=== PATIENT | male | born 1975 | race American Indian/Alaskan Native ===

== ENCOUNTER 2016-12-30 19:01 | Inpatient (IN) | payer OTHER ==
[2016-12-31] MEDS ORDERED: DECADRON IM ONE
[2016-12-31] MEDS ORDERED: TORADOL IM ONE
--- NOTE | 2016-12-31 00:14 | Emergency Department Report ---
ED Neck Pain HPI Chief Complaint: Neck Pain/Injury Stated Complaint: LOUISA/NECK SWELLING Time Seen by Provider: 12/30/16 23:58 Duration: Today Neck Pain Location: Anterior Neck Severity: moderate Symptoms: Yes Pain with Movement Other History: 41-year-old male comes in for complaint of right neck pain and swelling with no known injury. Onset this a.m. gradually worse throughout the day. He reports increased pain with swallowing but states his not his throat. He is able to complete control his secretions. Pain also radiates to the ear on the right. Denies any nausea vomiting does report a slight fever. Less having chills ED Review of Systems ROS: Stated complaint: LOUISA/NECK SWELLING Other details as noted in HPI Constitutional: chills, fever ENT: ear pain, other (neck pain and swelling) Respiratory: denies: cough Cardiovascular: denies: chest pain ED Past Medical Hx - Past Medical History Previous Medical History?: No - Surgical History Past Surgical History?: No - Social History Smoking Status: Never Smoker Substance Use Type: None Neck Pain Exam - Exam General: Vital signs noted. No distress. Alert and acting appropriately. GENERAL: Alert and oriented x3, no apparent distress, Normal Gait, atraumatic. HEAD: Head is normocephalic and a-traumatic. EYES: Extra ocular muscles are intact. Pupils are equal, round, and reactive to light and accommodation. EARS: symetrical, atraumatic, non tender, ear canal clear and moderate cerumen, tympanic membrance non inflamed. gross auditory nml bilaterally. NOSE: Nose symetrical, Nontender,Nares appeared normal. MOUTH:Mouth is well hydrated and without lesions. Tonsils nonerythematous or swollen, Uvula midline, Tongue not elevated. Mucous membranes are moist. Posterior pharynx clear, no exudate or lesions. Patent airways. NECK: Supple. edematous on the right, No carotid bruits. No lymphadenopathy or thyromegaly. PSYCHIATRIC: Mood is congruent with affect, denies suicidal or homicidal ideations. SKIN: Warm and dry, No lesions, No ulceration or induration present HEENT: No Facial Pain, No Scalp Tenderness Neck Pain: No Midline Tenderness ED Course Vital Signs 12/30/16 19:28 Temperature 99.2 F Pulse Rate 92 H Respiratory 20 Rate Blood Pressure 150/84 O2 Sat by Pulse 100 Oximetry ED Medical Decision Making - Radiology Data Radiology results: image reviewed FINDINGS: There submandibular soft tissue prominence and the epiglottis appears thickened. There is air anterior to the larynx likely within the esophagus. The prevertebral soft tissues are not swollen. The visualized bones are unremarkable. IMPRESSION: Submandibular soft tissue prominence and epiglottic thickening. Further evaluation with CT of the neck with contrast is recommended. Transcribed By: FLORENTIN Dictated By: SERGIO ALFRED MD Electronically Authenticated By: SERGIO ALFRED MD Signed Date/Time: 12/31/16 0152 - Medical Decision Making Patient's been evaluated by this provider in fast track. We will give patient Decadron 8 mg IM as well as Toradol 60 mg IM for pain and swelling. Review of x -rays waiting for results and the final reading. Patient verbalized understanding. Soft tissue x-ray came back with recommendation submandibular swelling. For CT with contrast Discussed with Dr. Johnson the results of the plain film as well as the call from the radiologist that there is a cute epiglottitis of right epiglottis thickening. His provider decides to admit patient for airway safety. Status post and patient my findings and my concerns. Patient decides to be admitted. Discussed with the admitting doctor Apoorva the reason I'm admitting he will come down and evaluate patient. Critical care attestation.: If time is entered above; I have spent that time in minutes in the direct care of this critically ill patient, excluding procedure time. ED Disposition Clinical Impression: Acute epiglottitis Qualifiers: Airway obstruction: without obstruction Qualified Code(s): J05.10 - Acute epiglottitis without obstruction Is pt being admited?: Yes Does the pt Need Aspirin: No Condition: Stable Referrals: PRIMARY CARE, [Primary Care Provider] - 3-5 Days Forms: Work/School Release Form(ED)
--- NOTE | 2016-12-31 00:54 | XRay Report ---
FINAL REPORT EXAM: XR NECK SOFT TISSUE HISTORY: pain TECHNIQUE: Two soft tissue views of the PRIORS: None. FINDINGS: There submandibular soft tissue prominence and the epiglottis appears thickened. There is air anterior to the larynx likely within the esophagus. The prevertebral soft tissues are not swollen. The visualized bones are unremarkable. IMPRESSION: Submandibular soft tissue prominence and epiglottic thickening. Further evaluation with CT of the neck with contrast is recommended.
[2016-12-31 02:07] LABS: Hematocrit 48.7 % (35.5-45.6); Mean Corpuscular HGB Conc 33 % (32-34); Mean Corpuscular Hemoglobin 28 pg (28-32); Mean Corpuscular Volume 85 fl (84-94); Platelet Count 225 K/mm3 (140-440); Red Blood Count 5.71 M/mm3 (3.65-5.03); Red Cell Distribution Width 14.4 % (13.2-15.2); White Blood Count 11.4 K/mm3 (4.5-11.0)
[2016-12-31] MEDS ORDERED: NACL ONE (02:13)
[2016-12-31 02:26] LABS: BUN/Creatinine Ratio 12.14; Blood Urea Nitrogen 17 mg/dL (9-20); Carbon Dioxide 23 mmol/L (22-30); Chloride 101.1 mmol/L (98-107); Glucose 117 mg/dL (75-100); Potassium 4.4 mmol/L (3.6-5.0); Sodium 138 mmol/L (137-145)
[2016-12-31 02:46] LABS: Anion Gap 18 mmol/L
--- NOTE | 2016-12-31 03:40 | Cat Scan Report ---
FINAL REPORT EXAM: CT NECK W CON HISTORY: neck swelling TECHNIQUE: CT scan of the neck with IV contrast. Multiplanar reformatted images. PRIORS: None FINDINGS: Limited scans through the upper chest are unremarkable. Normal appearance of the thyroid gland. Normal appearance of the larynx. The epiglottis and right aryepiglottic fold are thickened. No mucosal lesion identified. No pathologically enlarged lymph nodes seen. No mass or abscess seen. IMPRESSION: 1. Findings most suggestive of epiglottitis. Maxx Critical Test Result (CTR) protocol was initiated. I discussed these results immediately before signing this report with Dr. Dowell.
--- NOTE | 2016-12-31 05:00 | Event Note ---
Date: 12/31/16 See H/p in reports Acute Epiglottitis Dysphagia Obesity
[2016-12-31] MEDS ORDERED: DULCOLAX PR PRN (05:02)
[2016-12-31] MEDS ORDERED: MILK OF MAGNESIA PO PRN (05:02)
[2016-12-31] MEDS ORDERED: TYLENOL PO PRN (05:02)
[2016-12-31] MEDS ORDERED: DILAUDID IV PRN (05:02)
[2016-12-31] MEDS ORDERED: ZOFRAN IV PRN (05:02)
[2016-12-31] MEDS ORDERED: TORADOL IV PRN (05:23)
[2016-12-31] MEDS ORDERED: D5NS 1,000 ML IV SCH (06:00)
[2016-12-31 06:01] LABS: Basophils % (Auto) 0.4 % (0.0-1.8); Eosinophils % (Auto) 0.1 % (0.0-4.3); Hematocrit 47.2 % (35.5-45.6); Hemoglobin 15.4 gm/dl (11.8-15.2); Mean Corpuscular HGB Conc 33 % (32-34); Mean Corpuscular Hemoglobin 28 pg (28-32); Mean Corpuscular Volume 86 fl (84-94); Platelet Count 228 K/mm3 (140-440); Red Blood Count 5.51 M/mm3 (3.65-5.03); Red Cell Distribution Width 14.8 % (13.2-15.2); White Blood Count 14.8 K/mm3 (4.5-11.0)
--- NOTE | 2016-12-31 06:42 | History and Physical Report ---
CHIEF COMPLAINT: 1.Difficulty swallowing. 2.Pain with swallowing. HISTORY OF PRESENT ILLNESS: A 41-year-old male comes in for right neck pain and swelling with no known injury. Onset since morning. Increasing pain with swallowing, but no sore throat. Able to swallow his secretions. Pain radiates to the ear. Pain is about 6-7 on a scale of 1-10. The patient had a low-grade fever. PAST MEDICAL HISTORY: Significant for no hypertension, no diabetes. PAST SURGICAL HISTORY: None. SOCIAL HISTORY: Does not smoke. No alcohol, no recreational drugs. FAMILY HISTORY: Significant for no hypertension, no diabetes. REVIEW OF SYSTEMS: CONSTITUTIONAL: Has low-grade fever. GENERAL: No weight loss, no weight gain. HEENT: Has right neck pain and has difficulty swallowing. Also, right neck swelling. NECK: As mentioned, right neck swelling and right neck pain. Pain radiates into the right ear. CARDIOVASCULAR: No chest pain, no palpitations. No diaphoresis. RESPIRATORY: No wheezing or cough productive of yellow sputum. GASTROINTESTINAL: No nausea, no vomiting, no diarrhea. MUSCULOSKELETAL: No joint pains. CENTRAL NERVOUS SYSTEM: No syncope, no seizures. SKIN: No rashes. PHYSICAL EXAMINATION: GENERAL: Middle-aged male, cooperative during examination. Lying in bed comfortably. VITAL SIGNS: Temperature 99.2, pulse is 92, respirations are 20, blood pressure is 150/84, O2 sat 100%. HEENT: Significant for posterior pharynx redness present. Tonsils not swollen. NECK: Right neck swelling present, varied by 1 cm. Tender. No neck stiffness. No carotid bruit. CHEST AND LUNGS: Clear to auscultation and percussion. Good air entry. CARDIOVASCULAR: S1, S2 heard. No gallop, no murmur, no rub. Apical impulse in left fifth intercostal space and midclavicular line. ABDOMEN: Soft and benign. No hepatosplenomegaly. No guarding, no rigidity. Hernial orifices are normal. EXTREMITIES: Good pedal pulses. No pedal edema. CENTRAL NERVOUS SYSTEM: Alert and oriented x 4. Nonfocal exam. SKIN: Normal. LABORATORY DATA: Labs not done. Soft tissue of the neck x-rays were done, which showed some mild soft tissue prominence and epiglottic thickening. Further evaluation with CT with of the neck with contrast was recommended. CT of the neck showed epiglottis and right aryepiglottic fold thickened. ASSESSMENT AND PLAN: 1. Acute epiglottitis. The patient has difficulty swallowing. The patient will be initiated on clear liquid diet for the time being. The patient has no problem swallowing liquids. The patient has problem swallowing solids. The patient started on tried probably viral/bacterial. The patient started on IV Rocephin 2 gm IV piggyback q.24h. for possible strep infection and also IV Decadron 8 mg q.8h. to decrease the swelling of the epiglottis. Probable admission for 48 hours and discharge on oral antibiotics and oral steroids. He is symptomatically better. 2. Deep venous thrombosis prophylaxis. Lovenox 40 mg subcutaneous daily. 3. Obesity. The patient counseled. JOB# [id number] FREDDIE/LYNNE
[2016-12-31] MEDS ORDERED: D5W 0 ML IV ONE (06:48)
[2016-12-31] MEDS ORDERED: DECADRON ONE (06:48)
[2016-12-31 06:49] LABS: BUN/Creatinine Ratio 12.85; Blood Urea Nitrogen 18 mg/dL (9-20); Calcium 9.1 mg/dL (8.4-10.2); Carbon Dioxide 22 mmol/L (22-30); Chloride 100.1 mmol/L (98-107); Glucose 171 mg/dL (75-100); Potassium 4.6 mmol/L (3.6-5.0); Sodium 137 mmol/L (137-145)
[2016-12-31] MEDS ORDERED: D5NS 1,000 ML IV ONE (06:49)
[2016-12-31 06:52] LABS: Anion Gap 20 mmol/L
[2016-12-31] MEDS: DECADRON IV SCH ×3 (06:59→22:36)
[2016-12-31] MEDS: LOVENOX SUB-Q SCH (12:12)
--- NOTE | 2016-12-31 12:31 | Event Note ---
Date: 12/31/16 The patient is 41-year-old admitted with acute epiglottitis. He feels better. He was seen and examined. Continue IV antibiotics.
[2016-12-31] MEDS: ROCEPHIN/NS 2 GM/100 ML 2 GM/100 ML BAG IV SCH (14:24)
--- NOTE | 2017-01-01 00:36 | Admit Criteria Form ---
Admission Criteria Documentation: HEAD AND NECK DISEASE [facility] Clinical Indications for Admission to Inpatient Care ( Place 'X' for any and all applicable criteria): Hospital admission is needed for appropriate care of the patient because of ANY ONE of the following (1)(2): [ ]I. Severe sinusitis as indicated by ANY ONE of the following (6)(13)(21) [ ]a) Suspected TAKER [employer] MACHINE infection [ ]b) Bacteremia [ ]c) Hemodynamic instability [ ]d) Outpatient and observation care antibiotic treatment have failed or are not considered appropriate [ ]e) Surgical drainage needed that cannot be performed on an outpatient basis or observation. setting [ ]f) Suspected orbital involvement [ ]II. Acute glaucoma unresponsive to emergency treatment that requires medication or other treatment beyond the scope of observation care (1) [ ]III. Severe eye infection or inflammation (eg, uveitis) which is unresponsive to emergency treatment and requires medication or other treatment beyond the scope of observation care (1)(2)(3)(4) [ ]IV. Severe epistaxis requiring posterior packing (5)(6) [ ]V. Acute bacterial labyrinthitis(6)(7) [ ]. Viral labyrinthitis with symptoms uncontrollable on an outpatient or observation care basis (6)(7) [ ]VII. Severe necrotizing external otitis unresponsive to outpatient and observation care treatment(6) [ ]VIII. Otitis media requiring treatment beyond the scope of outpatient and observation care, as indicated by presence or persistence of ANY ONE of the following(6)(8)(9): [ ]a) Hemodynamic instability [ ]b) Mastoiditis [ ]c) Suspected T[employer] MACHINE infection [ ]d) Bacteremia [ ]e) Surgical drainage needed that cannot be performed as an outpatient. or in an observation setting. [ X]IX. Epiglottitis or supraglottitis(6)(11)(12)(13)(14) [ ]X. Stridor or laryngospasm (unresponsive to emergency management) (6)(11)( 12)(13)(14) [ ]XI. Acute pharyngitis or tonsillitis and ANY ONE of the following (14)(15)( 16): [ ]a) Hemodynamic instability remaining after emergency or observation level care (as appropriate) [ ]b) Surgical drainage needed that cannot be performed in outpatient or observation setting [ ]c) Mediastinitis [ ]d) Thrombophlebitis of internal jugular vein (Lemierre syndrome) [ ]XII. Sialoadenitis and ANY ONE of the following (17) (18) [ ]a) Hemodynamic instability remaining after emergency or observation level care(as appropriate) [ ]b) Surgical drainage needed that cannot be performed in outpatient or observation setting [ ]XIII. Airway blockage or inability to swallow (6)(12)(19)(20) [ ]XIV.Complicated infection indicated by ANY ONE of the following(6)(13)(21)(22 ): [ ]a) Abscess or swelling causing airway difficulty(12) [ ]b) Bacteremia [ ]c) Hemodynamic instability [ ]d) Suspected T[employer] MACHINE infection [ ]e) Outpatient and observation care antibiotic treatment have failed or are not considered appropriate [ ]f) Surgical drainage needed that cannot be performed on an outpatient basis or observation setting [ ]g) Other management need that cannot be performed in outpatient or observation setting: [ ]XV. Severe trauma requiring inpatient medical treatment of eye, head, pharynx, or airway (1)(23)([phone]) [ ]XVI. Ischemic optic neuropathy(11) [ ]XVII.Head or Neck Disease condition and ANY ONE of the following: [ ]a) Symptom or finding for which emergency and observation care have failed or are not considered appropriate (Also use General Criteria: Observation Care as appropriate) [ ]b) Presence of ANY ONE of the following: [ ]i) A General Admission Criteria [ ]ii) A Pediatric General Admission Criteria The original [facility] content created by [facility] has been revised. The portions of the content which have been revised are identified through the use of italic text or in bold, and [facility] has neither reviewed nor approved the modified material. All other unmodified content is copyright [facility]. Please see references footnoted in the original [facility] edition 2016 Admission Criteria Met: Yes
[2017-01-01] MEDS: DECADRON IV SCH (06:35)
[2017-01-01 07:20] LABS: Hematocrit 45.7 % (35.5-45.6); Hemoglobin 14.6 gm/dl (11.8-15.2); Mean Corpuscular HGB Conc 32 % (32-34); Mean Corpuscular Hemoglobin 28 pg (28-32); Mean Corpuscular Volume 87 fl (84-94); Platelet Count 226 K/mm3 (140-440); Red Blood Count 5.25 M/mm3 (3.65-5.03); Red Cell Distribution Width 14.6 % (13.2-15.2)
[2017-01-01 07:28] LABS: White Blood Count 21.4 K/mm3 (4.5-11.0)
[2017-01-01 07:54] LABS: Anion Gap 18 mmol/L; BUN/Creatinine Ratio 13.57; Blood Urea Nitrogen 19 mg/dL (9-20); Calcium 8.6 mg/dL (8.4-10.2); Carbon Dioxide 23 mmol/L (22-30); Chloride 104.3 mmol/L (98-107); Glucose 130 mg/dL (75-100); Sodium 140 mmol/L (137-145)
[2017-01-01] MEDS: LOVENOX SUB-Q SCH (09:34)
[2017-01-01] MEDS: ROCEPHIN/NS 2 GM/100 ML 2 GM/100 ML BAG IV SCH (09:35)
--- NOTE | 2017-01-01 10:31 | Discharge Summary ---
Providers - Providers Date of Admission: 12/31/16 05:02 Date of discharge: 01/01/17 Attending physician: CARINA KENT Primary care physician: KAITLYN UBENO MD Hospitalization Condition: Fair Disposition: DISCHARGED TO HOME OR SELFCARE - Discharge Diagnoses (1) Acute epiglottitis Status: Acute Qualifiers: Airway obstruction: without obstruction Qualified Code(s): J05.10 - Acute epiglottitis without obstruction Exam - Constitutional Vitals: Temp Pulse Resp BP Pulse Ox 98.3 F 80 18 128/72 98 01/01/17 08:00 01/01/17 08:00 01/01/17 08:00 01/01/17 08:00 01/01/17 08:00 Plan Activity: no restrictions Diet: low fat, low cholesterol Additional Instructions: 1. Follow up with PCP or [facility] in 1 week. Follow up with: PRIMARY CARE,MD [Primary Care Provider] - 3-5 Days Forms: Work/School Release Form(ED) Prescriptions: Cephalexin [Keflex] 500 mg PO Q12HR #20 cap Famotidine [Pepcid] 20 mg PO BID #30 tablet Prednisone [predniSONE 5 mg (6-Day Pack, 21 Tabs)] 5 mg PO .TAPER #1 tab.ds.pk
[2017-01-01 10:52] LABS: Anisocytosis 1+; Basophils % (Manual) 0 % (0.0-1.8); Blastocytes % (Manual) 0 %; Diff Status Complete; Eosinophils % (Manual) 0 % (0.0-4.3); Platelet Estimate Consistent w Auto; Total Cells Counted Percent 2.5
[2017-01-01 13:14] VITALS: BP 110/64
== END 2017-01-01 14:30 | disposition home or self-care (01) | DRG 153 ==
LOC: ED 19:01 → 3A 12-31 05:02
PROVIDERS: ADMIT Internal Medicine; ATTEND Internal Medicine
DX: J05.10 Acute epiglottitis without obstruction (principal); Z68.41 Body mass index [BMI] 40.0-44.9, adult; I10 Essential (primary) hypertension; E66.9 Obesity, unspecified; R13.10 Dysphagia, unspecified
CPT/HCPCS: 36415; 70360; 70491; 80048; 85007; 85025; 85027; 96372; J0696; J1100; J1650; J1885; J7042; J7070; Q9967

== ENCOUNTER 2021-05-05 22:27 | Emergency (ER) | payer OTHER ==
--- NOTE | 2021-05-05 23:21 | Event Note ---
ED Screening Note ED Screening Note: R GROIN AND FLANK PAIN DENIES HERNIA OR INJURY DENIES HX OF SAME NO DISCHARGE NO DYSURIA This initial assessment/diagnostic orders/clinical plan/treatment(s) is/are subject to change based on patients health status, clinical progression and re- assessment by fellow clinical providers in the ED. Further treatment and workup at subsequent clinical providers discretion. Patient/guardian urged not to elope from the ED as their condition may be serious if not clinically assessed and managed. Initial orders include: UA TO ROOM FOR EXAM RO HERNIA
[2021-05-05 23:27] VITALS: BP 138/82
[2021-05-06 01:17] LABS: Bilirubin,Urine NEG (Negative); Blood,Urine NEG (Negative); Color,Urine Yellow (Yellow); Mucus,Urine FEW /HPF; Urobilinogen,Urine < 2.0 mg/dL (<2.0); WBC,Urine < 1.0 /HPF (0.0-6.0)
[2021-05-06] MEDS ORDERED: KETOROLAC 30 MG/1 ML INJ IV ONE (02:45)
--- NOTE | 2021-05-06 03:02 | Emergency Department Report ---
ED Abdominal Pain HPI - General Chief Complaint: Abdominal Pain Stated Complaint: GROIN ADN LOWER BACK PAIN Time Seen by Provider: 05/05/21 23:20 Source: patient Mode of arrival: Ambulatory Limitations: No Limitations - History of Present Illness Initial Comments: 45-year-old -[place] male from department complaining of groin pain to the right lower inguinal region that radiates across to his back for the last 1 to 2 days and worse with palpation and certain range of motion. Reports no fever, chills, sweats reports no hematuria no dysuria no diarrhea no constipation no nausea no vomiting. MD Complaint: abdominal pain Radiation: none Migration to: R flank Severity: mild, moderate Quality: aching, dull Consistency: constant Improves With: nothing Worsens With: movement (Palpation) Associated Symptoms: denies: nausea, vomiting, fever, dysuria, hematemesis, melena, hematuria, anorexia - Related Data Previous Rx's Medication Instructions Recorded Last Taken Type Famotidine [Pepcid] 20 mg PO BID #30 tablet 01/01/17 Unknown Rx Prednisone [predniSONE 5 mg (6-Day 5 mg PO .TAPER #1 tab.ds.pk 01/01/17 Unknown Rx Pack, 21 Tabs)] cephALEXin [Keflex] 500 mg PO Q12HR #20 cap 01/01/17 Unknown Rx Hyoscyamine Subl [Levsin Sl 0.125 0.125 mg SL Q4HR PRN #20 tablet 05/06/21 Unknown Rx TAB] Allergies Allergy/AdvReac Type Severity Reaction Status Date / Time No Known Allergies Allergy Verified 12/31/16 02:19 ED Review of Systems ROS: Stated complaint: GROIN ADN LOWER BACK PAIN Other details as noted in HPI Comment: All other systems reviewed and negative ED Past Medical Hx - Past Medical History Previous Medical History?: No Hx Congestive Heart Failure: No Hx Diabetes: No Hx Asthma: No Hx COPD: No - Surgical History Past Surgical History?: No - Social History Smoking Status: Never Smoker Substance Use Type: None - Medications Home Medications: Home Medications Medication Instructions Recorded Confirmed Last Taken Type Famotidine [Pepcid] 20 mg PO BID #30 tablet 01/01/17 Unknown Rx Prednisone [predniSONE 5 mg (6-Day 5 mg PO .TAPER #1 tab.ds.pk 01/01/17 Unknown Rx Pack, 21 Tabs)] cephALEXin [Keflex] 500 mg PO Q12HR #20 cap 01/01/17 Unknown Rx Hyoscyamine Subl [Levsin Sl 0.125 0.125 mg SL Q4HR PRN #20 tablet 05/06/21 Unknown Rx TAB] ED Physical Exam - General Limitations: No Limitations General appearance: alert, in no apparent distress - Head Head exam: Present: atraumatic, normocephalic - Eye Eye exam: Present: normal appearance, PERRL Pupils: Present: normal accommodation - ENT ENT exam: Present: normal exam, mucous membranes moist - Neck Neck exam: Present: normal inspection - Respiratory Respiratory exam: Present: normal lung sounds bilaterally. Absent: respiratory distress - Cardiovascular Cardiovascular Exam: Present: regular rate, normal rhythm. Absent: systolic murmur, diastolic murmur, rubs, gallop - GI/Abdominal GI/Abdominal exam: Present: soft, tenderness (To the right inguinal region with palpation.), normal bowel sounds. Absent: guarding, rebound, organomegaly, mass - Rectal Rectal exam: Present: deferred - Extremities Exam Extremities exam: Present: normal inspection - Back Exam Back exam: Present: normal inspection. Absent: CVA tenderness (R), CVA tenderness (L) - Neurological Exam Neurological exam: Present: alert, oriented X3, CN II-XII intact - Psychiatric Psychiatric exam: Present: normal affect, normal mood - Skin Skin exam: Present: warm, dry, intact, normal color. Absent: rash ED Course Vital Signs 05/05/21 05/05/21 05/06/21 23:23 23:27 06:49 Temperature 98.4 F Pulse Rate 80 75 Respiratory 18 17 Rate Blood Pressure 138/82 O2 Sat by Pulse 100 97 Oximetry ED Medical Decision Making - Lab Data Result diagrams: 05/06/21 03:01 05/06/21 03:01 - Medical Decision Making This patient presents with abdominal pain of unclear etiology. Their evaluation has not identified a emergent etiology for the abdominal pain. Specifically, given the very benign exam, normal laboratory studies, and lack of significant risk factors, I have a very low suspicion for appendicitis, ischemic bowel, bowel perforation, or any other life threatening disease. I have discussed with the patient the level of uncertainty with undifferentiated abdominal pain and clearly explained the need to follow-up as noted on the discharge instructions, or return to the Emergency Department immediately if the pain worsens, develops fever, persistent and uncontrollable vomiting, or for any new symptoms or concerns. I discussed with the patient that this presentation today for abdominal pain could represent a significant risk for an acute abdominal process. Although the tests in the ED were essentially normal, there is still a possibility of a process such as appendicitis, diverticulitis, cholecystitis, ulcer, early bowel obstruction, mesenteric ischemia, kidney stone, or even kidney infection which could subsequently cause disability or . The patient understands that they must return within 24 hours for a recheck or see their physician within 24 hours for re-exam due to the possibility of significant surgical or medical process. Critical care attestation.: If time is entered above; I have spent that time in minutes in the direct care of this critically ill patient, excluding procedure time. ED Disposition Clinical Impression: Abdominal pain Disposition: - TO HOME OR SELFCARE Is pt being admited?: No Does the pt Need Aspirin: No Condition: Stable Instructions: Abdominal Pain, Adult, [id number] Prescriptions: Hyoscyamine Subl [Levsin Sl 0.125 TAB] 0.125 mg SL Q4HR PRN #20 tablet PRN Reason: Spasms Referrals: [facility] [Provider Group] - 3-5 Days [facility] [Provider Group] - 3-5 Days PRIMARY CARE, [Primary Care Provider] - 3-5 Days
[2021-05-06 03:23] LABS: Basophils % (Auto) 0.7 % (0.0-1.8); Eosinophils # (Auto) 0.1 K/mm3 (0.0-0.4); Eosinophils % (Auto) 1.4 % (0.0-4.3); Hematocrit 46.4 % (35.5-45.6); Hemoglobin 15.5 gm/dl (11.8-15.2); Lymphocytes # (Auto) 3.1 K/mm3 (1.2-5.4); Lymphocytes % (Auto) 45.7 % (13.4-35.0); Mean Corpuscular HGB Conc 33 % (32-34); Mean Corpuscular Volume 88 fl (84-94); Monocytes # (Auto) 0.6 K/mm3 (0.0-0.8); Monocytes % (Auto) 9.7 % (0.0-7.3); Platelet Count 221 K/mm3 (140-440); Red Cell Distribution Width 14.9 % (13.2-15.2)
[2021-05-06 03:51] LABS: Alanine Aminotransferase 34 units/L (7-56); Albumin 4.3 g/dL (3.9-5); BUN/Creatinine Ratio 14; Blood Urea Nitrogen 18 mg/dL (9-20); Hemolysis Index 487
[2021-05-06 03:53] LABS: Bilirubin,Direct < 0.2 mg/dL (0-0.2)
== END 2021-05-06 06:49 | disposition home or self-care (01) ==
LOC: ED 22:27
DX: R10.31 Right lower quadrant pain (principal); Z79.899 Other long term (current) drug therapy
CPT/HCPCS: 36415; 80048; 80076; 81001; 83690; 85025; 96374; 99283; J1885

== ENCOUNTER 2021-05-13 12:54 | Observation (INO) | payer OTHER ==
--- NOTE | 2021-05-13 13:12 | Event Note ---
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 He denies any chest pain, shortness of breath, headache, vision changes, speech disturbance, gait disturbance, weakness, facial droop, any other symptoms Patient denies past medical history No allergies to medicines Cranial nerves II through XII intact, 5 out of 5 muscle strength in the bilateral upper extremity and lower extremity, patient is able to feel touch in the bilateral upper extremity and lower extremity, normal gait, no facial asymmetry, no pronator drift This initial assessment/diagnostic orders/clinical plan/treatment(s) is/are subject to change based on patients health status, clinical progression and re- assessment by fellow clinical providers in the ED. Further treatment and workup at subsequent clinical providers discretion. Patient/guardian urged not to elope from the ED as their condition may be serious if not clinically assessed and managed. Initial orders include: Discussed case with Dr. Sayra Gamboa, ER attending who advised symptoms likely not consistent with stroke and seems more consistent with radiculopathy Will defer any further testing to
--- NOTE | 2021-05-13 15:05 | Emergency Department Report ---
HPI - General Chief Complaint: Neuro Symptoms/Deficit Time Seen by Provider: 05/13/21 13:09 - HPI HPI: This is a 45-year-old -[place] male presents to the emergency department with a complaint of left arm numbness that has been going on since about 11:15 AM. Patient did not take anything for his symptoms prior to presentation. He says that he was at work and waited for another hour, thinking that the symptoms would go away on their own, and when they did not he came in for further evaluation. The patient questions whether this could be a reaction to taking a dose of Cipro, which he first took this morning at around 6:30 AM after being p laced on it by his PCP secondary to some lymphadenopathy. He denies any headache, vision change, slurred speech, weakness, shortness of breath. He denies any swelling of the arm, skin color change, rash or lesions. He denies any tobacco or illicit drug use. ED Past Medical Hx - Past Medical History Hx Congestive Heart Failure: No Hx Diabetes: No Hx Asthma: No Hx COPD: No - Surgical History Past Surgical History?: No - Social History Smoking Status: Never Smoker Substance Use Type: None - Medications Home Medications: Home Medications Medication Instructions Recorded Confirmed Last Taken Type Famotidine [Pepcid] 20 mg PO BID #30 tablet 01/01/17 Unknown Rx Prednisone [predniSONE 5 mg (6-Day 5 mg PO .TAPER #1 tab.ds.pk 01/01/17 Unknown Rx Pack, 21 Tabs)] cephALEXin [Keflex] 500 mg PO Q12HR #20 cap 01/01/17 Unknown Rx Hyoscyamine Subl [Levsin Sl 0.125 0.125 mg SL Q4HR PRN #20 tablet 05/06/21 Unknown Rx TAB] ED Review of Systems ROS: Stated complaint: LT ARM NUMBNESS Other details as noted in HPI Comment: All other systems reviewed and negative Constitutional: denies: chills, fever Eyes: denies: eye pain, vision change ENT: denies: ear pain, throat pain Respiratory: denies: cough, shortness of breath Cardiovascular: denies: chest pain, palpitations Gastrointestinal: denies: abdominal pain, vomiting Genitourinary: denies: dysuria, discharge Musculoskeletal: denies: back pain, arthralgia Skin: denies: rash, lesions Neurological: numbness, paresthesias. denies: headache Physical Exam - Physical Exam Vital Signs: Vital Signs 05/13/21 13:02 Temperature 98.3 F Pulse Rate 85 Respiratory 18 Rate Blood Pressure 126/81 O2 Sat by Pulse 98 Oximetry Physical Exam: GENERAL: The patient is well-developed well-nourished. HENT: Normocephalic. Atraumatic. Patient has moist mucous membranes. EYES: Extraocular motions are intact. Pupils equal reactive to light bilaterally. No nystagmus. NECK: Supple. Trachea is midline. CHEST/LUNGS: Clear to auscultation. There is no respiratory distress noted. HEART/CARDIOVASCULAR: Regular. There is no tachycardia. There is no murmur. ABDOMEN: Abdomen is soft, nontender. Patient has normal bowel sounds. There is no abdominal distention. SKIN: Skin is warm and dry. NEURO: The patient is awake, alert, and oriented. The patient is cooperative. Subjective decreased sensation to the left upper extremity and left upper flank. Normal speech. No facial asymmetry. No pronator drift or dysmetria. Cranial nerves II through XII grossly intact. MUSCULOSKELETAL: There is no tenderness or deformity. There is no limitation range of motion. ED Course Vital Signs 05/13/21 13:02 Temperature 98.3 F Pulse Rate 85 Respiratory 18 Rate Blood Pressure 126/81 O2 Sat by Pulse 98 Oximetry - Reevaluation(s) Reevaluation #1: 05/13/21 15:03 The patient is a NIH stroke scale of 1. His symptoms are more consistent with radiculopathy. However, given the numbness of the left arm and the fact that the differential diagnosis does include CVA, a code stroke has been initiated. ED Medical Decision Making - Lab Data Result diagrams: 05/13/21 15:04 05/13/21 15:04 Lab Results 05/13/21 05/13/21 05/13/21 Range/Units 13:06 15:04 15:04 WBC 7.0 (4.5-11.0) K/mm3 RBC 5.18 H (3.65-5.03) M/mm3 Hgb 15.1 (11.8-15.2) gm/dl Hct 45.4 (35.5-45.6) % MCV 88 (84-94) fl MCH 29 (28-32) pg MCHC 33 (32-34) % RDW 14.8 (13.2-15.2) % Plt Count 220 (140-440) K/mm3 Lymph % (Auto) 41.3 H (13.4-35.0) % Daniels % (Auto) 8.7 H (0.0-7.3) % Eos % (Auto) 0.8 (0.0-4.3) % Baso % (Auto) 0.5 (0.0-1.8) % Lymph # (Auto) 2.9 (1.2-5.4) K/mm3 Daniels # (Auto) 0.6 (0.0-0.8) K/mm3 Eos # (Auto) 0.1 (0.0-0.4) K/mm3 Baso # (Auto) 0.0 (0.0-0.1) K/mm3 Seg Neutrophils % 48.7 (40.0-70.0) % Seg Neutrophils # 3.4 (1.8-7.7) K/mm3 PT 13.4 (12.2-14.9) Sec. INR 0.97 (0.87-1.13) APTT 25.9 (24.2-36.6) Sec. Thrombin Time 17.9 (15.1-19.6) Sec. Sodium (137-145) mmol/L Potassium (3.6-5.0) mmol/L Chloride (98-107) mmol/L Carbon Dioxide (22-30) mmol/L Anion Gap mmol/L BUN (9-20) mg/dL Creatinine (0.8-1.3) mg/dL Estimated GFR ml/min BUN/Creatinine Ratio % Glucose (75-100) mg/dL POC Glucose 94 (70-105) mg/dL Calcium (8.4-10.2) mg/dL Magnesium (1.7-2.3) mg/dL Total Bilirubin (0.1-1.2) mg/dL AST (5-40) units/L ALT (7-56) units/L Alkaline Phosphatase (35-129) units/L Total Creatine Kinase (55-170) units/L CK-MB (CK-2) (0.0-4.0) ng/mL CK-MB (CK-2) Rel Index (0-4) Troponin T (0.00-0.029) ng/mL Total Protein (6.3-8.2) g/dL Albumin (3.9-5) g/dL Albumin/Globulin Ratio % Plasma/Serum Alcohol (0-0.07) % 05/13/21 05/13/21 05/13/21 Range/Units 15:04 15:04 15:04 WBC (4.5-11.0) K/mm3 RBC (3.65-5.03) M/mm3 Hgb (11.8-15.2) gm/dl Hct (35.5-45.6) % MCV (84-94) fl MCH (28-32) pg MCHC (32-34) % RDW (13.2-15.2) % Plt Count (140-440) K/mm3 Lymph % (Auto) (13.4-35.0) % Daniels % (Auto) (0.0-7.3) % Eos % (Auto) (0.0-4.3) % Baso % (Auto) (0.0-1.8) % Lymph # (Auto) (1.2-5.4) K/mm3 Daniels # (Auto) (0.0-0.8) K/mm3 Eos # (Auto) (0.0-0.4) K/mm3 Baso # (Auto) (0.0-0.1) K/mm3 Seg Neutrophils % (40.0-70.0) % Seg Neutrophils # (1.8-7.7) K/mm3 PT (12.2-14.9) Sec. INR (0.87-1.13) APTT (24.2-36.6) Sec. Thrombin Time (15.1-19.6) Sec. Sodium 140 (137-145) mmol/L Potassium 4.4 (3.6-5.0) mmol/L Chloride 105.3 (98-107) mmol/L Carbon Dioxide 23 (22-30) mmol/L Anion Gap 16 mmol/L BUN 15 (9-20) mg/dL Creatinine 1.4 H (0.8-1.3) mg/dL Estimated GFR > 60 ml/min BUN/Creatinine Ratio 11 % Glucose 96 (75-100) mg/dL POC Glucose (70-105) mg/dL Calcium 9.2 (8.4-10.2) mg/dL Magnesium 2.10 (1.7-2.3) mg/dL Total Bilirubin 0.30 (0.1-1.2) mg/dL AST 20 (5-40) units/L ALT 29 (7-56) units/L Alkaline Phosphatase 73 (35-129) units/L Total Creatine Kinase 556 H (55-170) units/L CK-MB (CK-2) 6.3 H (0.0-4.0) ng/mL CK-MB (CK-2) Rel Index 1.1 (0-4) Troponin T < 0.010 (0.00-0.029) ng/mL Total Protein 7.2 (6.3-8.2) g/dL Albumin 4.4 (3.9-5) g/dL Albumin/Globulin Ratio 1.6 % Plasma/Serum Alcohol < 0.01 (0-0.07) % - EKG Data -: EKG Interpreted by Sc EKG shows normal: sinus rhythm, axis, intervals, QRS complexes, ST-T waves Rate: normal - EKG Data When compared to previous EKG there are: previous EKG unavailable Interpretation: normal EKG - Radiology Data Radiology results: report reviewed CT head/brain wo con INDICATION: Stroke symptoms. TECHNIQUE: All CT scans at this location are performed using CT dose reduction for ALARA by means of automated exposure control. COMPARISON: None available. FINDINGS: There is no evidence of hemorrhage, hydrocephalus, brain edema, or mass effect/mass lesion. There is normal ramos-white differentiation. Ventricular and cisternal size harleen ears more for age. The included paranasal sinuses and mastoid air cells are clear. The orbits appear unremarkable. IMPRESSION: 1. No acute intracranial abnormality. - Medical Decision Making This patient presents to the emergency department with complaint of left arm numbness, as well as some decrease sensation to the left upper flank. This gives him a 1 on the NIH stroke scale. Because of this I initiated a code stroke upon my initial examination. Patient had a CT scan of the head without contrast that did not show any large vessel occlusion, hemorrhage, hydrocephalus, edema, or any other acute processes. Patient's labs have been unremarkable including CBC, metabolic panel, thyroid function, troponin, and blood alcohol level. The patient was seen by the telemedicine neurologist who agrees with the NIH stroke scale of 1. He agrees that the patient does not appear to be a TPA candidate with a low NIH stroke scale and other possibilities within the differential. It does not appear like a large vessel occlusion and the patient does not require CT angiography of the head and neck at this time. Patient symptoms appear consistent with cervical radiculopathy, but a minor stroke cannot be ruled out. Neurology recommends admission for MRI of the brain and cervical spine. Vital signs reassuring throughout his ED course thus far. The patient will be admitted to the hospital for further evaluation and treatment was accepted for admission by the hospitalist, Dr. Guerin. Critical Care Time: No Critical care attestation.: If time is entered above; I have spent that time in minutes in the direct care of this critically ill patient, excluding procedure time. ED Disposition Clinical Impression: Left arm numbness, Numbness on left side Disposition: OP ADMIT IP TO THIS HOSP Is pt being admited?: Yes Condition: Fair Time of Disposition: 16:14
[2021-05-13 15:15] LABS: Basophils % (Auto) 0.5 % (0.0-1.8); Eosinophils # (Auto) 0.1 K/mm3 (0.0-0.4); Eosinophils % (Auto) 0.8 % (0.0-4.3); Hematocrit 45.4 % (35.5-45.6); Hemoglobin 15.1 gm/dl (11.8-15.2); Lymphocytes # (Auto) 2.9 K/mm3 (1.2-5.4); Lymphocytes % (Auto) 41.3 % (13.4-35.0); Mean Corpuscular HGB Conc 33 % (32-34); Mean Corpuscular Volume 88 fl (84-94); Monocytes # (Auto) 0.6 K/mm3 (0.0-0.8); Monocytes % (Auto) 8.7 % (0.0-7.3); Platelet Count 220 K/mm3 (140-440); Red Blood Count 5.18 M/mm3 (3.65-5.03); Red Cell Distribution Width 14.8 % (13.2-15.2)
[2021-05-13 15:28] LABS: INR 0.97 (0.87-1.13); Partial Thromboplastin Time 25.9 Sec. (24.2-36.6)
[2021-05-13 15:29] LABS: Thrombin Time 17.9 Sec. (15.1-19.6)
[2021-05-13 15:38] LABS: Creatine Kinase MB 6.3 ng/mL (0.0-4.0)
[2021-05-13 15:41] LABS: Alanine Aminotransferase 29 units/L (7-56); Albumin 4.4 g/dL (3.9-5); BUN/Creatinine Ratio 11; Blood Urea Nitrogen 15 mg/dL (9-20); Calcium 9.2 mg/dL (8.4-10.2); Hemolysis Index 13
--- NOTE | 2021-05-13 15:55 | Cat Scan Report ---
CT head/brain wo con INDICATION: Stroke symptoms. TECHNIQUE: All CT scans at this location are performed using CT dose reduction for ALARA by means of automated e xposure control. COMPARISON: None available. FINDINGS: There is no evidence of hemorrhage, hydrocephalus, brain edema, or mass effect/mass lesion. There is normal ramos-white differentiation. Ventricular and cisternal size appears more for age. The included paranasal sinuses and mastoid air cells are clear. The orbits appear unremarkable. IMPRESSION: 1. No acute intracranial abnormality. CODE STROKE: Time of Communication (MARINE FIREMAN/CDT): 2:42 PM Licensed Practitioner Receiving Report: Shear Signer Name: Timothy Sorensen MD Signed: 05/13/2021 3:42 PM Workstation Name: [id number]
--- NOTE | 2021-05-13 16:26 | Consultation ---
Medications and Allergies Allergies Allergy/AdvReac Type Severity Reaction Status Date / Time No Known Allergies Allergy Verified 05/13/21 12:59 Home Medications Medication Instructions Recorded Confirmed Last Taken Type Famotidine [Pepcid] 20 mg PO BID #30 tablet 01/01/17 Unknown Rx Prednisone [predniSONE 5 mg (6-Day 5 mg PO .TAPER #1 tab.ds.pk 01/01/17 Unknown Rx Pack, 21 Tabs)] cephALEXin [Keflex] 500 mg PO Q12HR #20 cap 01/01/17 Unknown Rx Hyoscyamine Subl [Levsin Sl 0.125 0.125 mg SL Q4HR PRN #20 tablet 05/06/21 Unknown Rx TAB] Physical Examination - Vital Signs Vital Signs: Vital Signs Temp Pulse Resp BP Pulse Ox 98.3 F 85 18 126/81 98 05/13/21 13:02 05/13/21 13:02 05/13/21 13:02 05/13/21 13:02 05/13/21 13:02 Results - Laboratory Findings CBC and BMP: 05/13/21 15:04 05/13/21 15:04 Abnormal Lab Findings: Abnormal Labs 05/13/21 05/13/21 15:04 15:04 RBC 5.18 H Lymph % (Auto) 41.3 H [place] % (Auto) 8.7 H Creatinine 1.4 H Total Creatine Kinase 556 H CK-MB (CK-2) 6.3 H Assessment and Plan [facility] Consult Note # Demographics Consult Type: Acute Stroke Level 1 (0-4.5 hrs) Patient Location: Emergency Room First Name: Gabriella Last Name: Lesley Date of : 1975 Age: 45 Gender: Male Time of Initial Page (Eastern Time): 05/13/2021, 15:22 Time of Return Call (Eastern Time): 05/13/2021, 15:24 # HPI History: 45 yo man with left arm numbness and left side truncal numbness as well. Symptom started around 11:30 this morning while at work. Recently started on Ciprofloxacin for swollen lymph nodes in groin. Last Known Normal: I have collected independent history specific to time last normal or last known well. We have collaborated with the provider and at this time, we have the most current timeline with the information that is available. 11:30 # Scores Time of exam and NIHSS (Eastern Time): 05/13/2021, 15:42 Level of Consciousness 1a: [0] = Alert; keenly responsive LOC Questions 1b: [0] = Answers both questions correctly LOC Commands 1c: [0] = Performs both tasks correctly Best Gaze 2: [0] = Normal Visual 3: [0] = No visual loss Facial Palsy 4: [0] = Normal symmetrical movements Motor Arm Left 5a: [0] = No drift Motor Arm Right 5b: [0] = No drift Motor Leg Left 6a: [0] = No drift Motor Leg Right 6b: [0] = No drift Limb Ataxia 7: [0] = Absent Sensory 8: [1] = Onda-fr-[id number] sensory loss Best Language 9: [0] = No aphasia Dysarthria 10: [0] = Normal Extinction and Inattention 11: [0] = No abnormality NIHSS Total: 1 # Exam SBP: 123 DBP: 68 # PMH-FH-SH Past Medical History: denies Social History: occasional alcohol Medications: Ciprofloxacin Allergies: NKDA # Assessment Impression: Left arm numbness. Differential includes cervical radiculopathy vs stroke. Given mildness of symptoms would not recommend tpa. # Plan Thrombolytic/Intervention: NOT IV Thrombolytic or IA Intervention Thrombolytic Exclusion (< 3 hour window): non-disabling deficit Intraarterial Exclusion: other Symptoms not suggestive of LVO Imaging: (urgency: STAT): MRI Brain with AND without contrast MRI C spine DVT Prophylaxis: chemical DVT prophylaxis Other: would not pursue stroke work-up if MRI is negative I have discussed my recommendations with the referring provider Additional Recommendations: MRI brain to further evaluate for stroke. If positive will need further workup MRI C-spine to evaluate for cervical radiculopathy Disposition: admit
--- NOTE | 2021-05-13 21:55 | History and Physical Report ---
History of Present Illness Date of examination: 05/13/21 Date of admission: 05/13/21 16:14 Chief complaint: Left arm numbness History of present illness: 45-year-old male with no significant past medical history except for obesity comes in for left arm numbness which has been going on since 11 AM. The left arm numbness is continuous. No remission. Patient is work and waited for 1 hour thinking that the symptoms would go away on their own. Because of nonresolution of the symptoms patient comes to the emergency room. Patient thinks it may be because of Cipro which he is taking for some lymph node infection. From his PCP. No weakness. No slurred speech. No diplopia. No unsteady gait. Strength is normal in all 4 extremities. No syncope. - Past Medical History No - Surgical History Past Surgical History?: No - Social History Smoking Status: Never Smoker Substance Use Type: None - Medications Home Medications: Home Medications Medication Instructions Recorded Confirmed Last Taken Type Famotidine [Pepcid] 20 mg PO BID #30 tablet 01/01/17 Unknown Rx Prednisone [predniSONE 5 mg (6-Day 5 mg PO .TAPER #1 tab.ds.pk 01/01/17 Unknown Rx Pack, 21 Tabs)] cephALEXin [Keflex] 500 mg PO Q12HR #20 cap 01/01/17 Unknown Rx Hyoscyamine Subl [Levsin Sl 0.125 0.125 mg SL Q4HR PRN #20 tablet 05/06/21 Unknown Rx TAB] --Review of Systems ROS: Stated complaint: LT ARM NUMBNESS Other details as noted in HPI Comment: All other systems reviewed and negative Constitutional: denies: chills, fever Eyes: denies: eye pain, vision change ENT: denies: ear pain, throat pain Respiratory: denies: cough, shortness of breath Cardiovascular: denies: chest pain, palpitations Gastrointestinal: denies: abdominal pain, vomiting Genitourinary: denies: dysuria, discharge Musculoskeletal: denies: back pain, arthralgia Skin: denies: rash, lesions Neurological: numbness, paresthesias. denies: headache Medications and Allergies Allergies Allergy/AdvReac Type Severity Reaction Status Date / Time No Known Allergies Allergy Verified 05/13/21 12:59 Home Medications Medication Instructions Recorded Confirmed Last Taken Type No Known Home Medications [No 05/13/21 05/13/21 Unknown History Reported Home Medications] Exam - Constitutional Vitals: Temp Pulse Resp BP Pulse Ox 98.2 F 76 20 118/72 94 05/13/21 20:58 05/13/21 20:58 05/13/21 20:58 05/13/21 20:58 05/13/21 20:58 General appearance: Present: no acute distress, well-nourished - EENT Eyes: Present: PERRL ENT: hearing intact, clear oral mucosa - Neck Neck: Present: supple, normal ROM - Respiratory Respiratory effort: normal Respiratory: bilateral: CTA - Cardiovascular Heart rate: 78 Rhythm: regular Heart Sounds: Present: S1 & S2. Absent: rub, click - Extremities Extremities: pulses symmetrical, No edema, abnormal (Left arm numbness) Extremity abnormal: other (Decreased sensation of the left arm) Peripheral Pulses: within normal limits - Abdominal General gastrointestinal: Present: soft, non-tender, non-distended, normal bowel sounds Male genitourinary: Present: normal - Integumentary Integumentary: Present: clear, warm, dry - Musculoskeletal Musculoskeletal: gait normal, strength equal bilaterally - Psychiatric Psychiatric: appropriate mood/affect, intact judgment & insight - Neurologic Neurologic: CNII-XII intact, moves all extremities HEART Score - HEART Score History: Slightly suspicious Age: 45-65 Risk factors: 1-2 risk factors (Obesity) Troponin: Troponin T < 0.010 ng/mL (0.00-0.029) 05/13/21 15:04 Troponin: < normal limit - Critical Actions Critical Actions: 0-3 pts:0.9-1.7%risk of adverse cardiac event.Candidate for discharge Results - Labs CBC & Chem 7: 05/13/21 15:04 05/13/21 15:04 Labs: Laboratory Last Values WBC 7.0 K/mm3 (4.5-11.0) 05/13/21 15:04 RBC 5.18 M/mm3 (3.65-5.03) H 05/13/21 15:04 Hgb 15.1 gm/dl (11.8-15.2) 05/13/21 15:04 Hct 45.4 % (35.5-45.6) 05/13/21 15:04 MCV 88 fl (84-94) 05/13/21 15:04 MCH 29 pg (28-32) 05/13/21 15:04 MCHC 33 % (32-34) 05/13/21 15:04 RDW 14.8 % (13.2-15.2) 05/13/21 15:04 Plt Count 220 K/mm3 (140-440) 05/13/21 15:04 Lymph % (Auto) 41.3 % (13.4-35.0) H 05/13/21 15:04 [place] % (Auto) 8.7 % (0.0-7.3) H 05/13/21 15:04 Eos % (Auto) 0.8 % (0.0-4.3) 05/13/21 15:04 Baso % (Auto) 0.5 % (0.0-1.8) 05/13/21 15:04 Lymph # (Auto) 2.9 K/mm3 (1.2-5.4) 05/13/21 15:04 [place] # (Auto) 0.6 K/mm3 (0.0-0.8) 05/13/21 15:04 Eos # (Auto) 0.1 K/mm3 (0.0-0.4) 05/13/21 15:04 Baso # (Auto) 0.0 K/mm3 (0.0-0.1) 05/13/21 15:04 Seg Neutrophils % 48.7 % (40.0-70.0) 05/13/21 15:04 Seg Neutrophils # 3.4 K/mm3 (1.8-7.7) 05/13/21 15:04 PT 13.4 Sec. (12.2-14.9) 05/13/21 15:04 INR 0.97 (0.87-1.13) 05/13/21 15:04 APTT 25.9 Sec. (24.2-36.6) 05/13/21 15:04 Thrombin Time 17.9 Sec. (15.1-19.6) 05/13/21 15:04 Sodium 140 mmol/L (137-145) 05/13/21 15:04 Potassium 4.4 mmol/L (3.6-5.0) 05/13/21 15:04 Chloride 105.3 mmol/L (98-107) 05/13/21 15:04 Carbon Dioxide 23 mmol/L (22-30) 05/13/21 15:04 Anion Gap 16 mmol/L 05/13/21 15:04 BUN 15 mg/dL (9-20) 05/13/21 15:04 Creatinine 1.4 mg/dL (0.8-1.3) H 05/13/21 15:04 Estimated GFR > 60 ml/min 05/13/21 15:04 BUN/Creatinine Ratio 11 % 05/13/21 15:04 Glucose 96 mg/dL (75-100) 05/13/21 15:04 POC Glucose 94 mg/dL (70-105) 05/13/21 13:06 Calcium 9.2 mg/dL (8.4-10.2) 05/13/21 15:04 Magnesium 2.10 mg/dL (1.7-2.3) 05/13/21 15:04 Total Bilirubin 0.30 mg/dL (0.1-1.2) 05/13/21 15:04 AST 20 units/L (5-40) 05/13/21 15:04 ALT 29 units/L (7-56) 05/13/21 15:04 Alkaline Phosphatase 73 units/L (35-129) 05/13/21 15:04 Total Creatine Kinase 556 units/L (55-170) H 05/13/21 15:04 CK-MB (CK-2) 6.3 ng/mL (0.0-4.0) H 05/13/21 15:04 CK-MB (CK-2) Rel Index 1.1 (0-4) 05/13/21 15:04 Troponin T < 0.010 ng/mL (0.00-0.029) 05/13/21 15:04 Total Protein 7.2 g/dL (6.3-8.2) 05/13/21 15:04 Albumin 4.4 g/dL (3.9-5) 05/13/21 15:04 Albumin/Globulin Ratio 1.6 % 05/13/21 15:04 Plasma/Serum Alcohol < 0.01 % (0-0.07) 05/13/21 15:04 Short CBC 05/13/21 Range/Units 15:04 WBC 7.0 (4.5-11.0) K/mm3 Hgb 15.1 (11.8-15.2) gm/dl Hct 45.4 (35.5-45.6) % Plt Count 220 (140-440) K/mm3 BMP 05/13/21 15:04 Sodium 140 Potassium 4.4 Chloride 105.3 Carbon Dioxide 23 BUN 15 Creatinine 1.4 H Glucose 96 Calcium 9.2 Cardiac Enzymes 05/13/21 Range/Units 15:04 Total Creatine Kinase 556 H (55-170) units/L CK-MB (CK-2) 6.3 H (0.0-4.0) ng/mL Troponin T < 0.010 (0.00-0.029) ng/mL Liver Function 05/13/21 Range/Units 15:04 Total Bilirubin 0.30 (0.1-1.2) mg/dL AST 20 (5-40) units/L ALT 29 (7-56) units/L Alkaline Phosphatase 73 (35-129) units/L Albumin 4.4 (3.9-5) g/dL - Imaging and Cardiology Imaging and Cardiology: Head CT No acute intracranial abnormality Assessment and Plan Advance Directives: Yes (Full code) VTE prophylaxis?: Chemical Plan of care discussed with patient/family: Yes - Patient Problems (1) Cervical radiculopathy Current Visit: Yes Status: Acute Plan to address problem: Left arm numbness consistent with possible cervical disc compression We will get MRI C-spine Neurology consult MRI brain not indicated (2) LUIGI (acute kidney injury) Current Visit: Yes Status: Acute Plan to address problem: IV fluids (3) Morbid obesity with body mass index (BMI) of 40.0 to 44.9 in adult Current Visit: No Status: Chronic Plan to address problem: Patient needs follow-up with bariatric surgeon counseled about his weight (4) DVT prophylaxis Current Visit: Yes Status: Acute Plan to address problem: On heparin and GI prophylaxis
[2021-05-13] MEDS ORDERED: METOCLOPRAMIDE 10 MG/2 ML INJ IV PRN (22:01)
[2021-05-13] MEDS ORDERED: oxyCODONE /ACETAMINOPHEN 5-325MG TAB PO PRN (22:01)
[2021-05-13] MEDS ORDERED: ONDANSETRON 4 MG/2 ML INJ IV PRN (22:01)
[2021-05-13] MEDS ORDERED: HYDROmorphone 1 MG/1 ML INJ IV PRN (22:01)
[2021-05-13] MEDS ORDERED: ACETAMINOPHEN 325 MG TAB PO PRN (22:01)
[2021-05-13] MEDS ORDERED: SODIUM CHLORIDE 0.9% 1000 ML 1,000 ML IV SCH (22:15)
[2021-05-13] MEDS: HEPARIN 5,000 UNIT/1 ML VIAL SUB-Q SCH (23:33)
[2021-05-14 05:47] LABS: Basophils % (Auto) 0.3 % (0.0-1.8); Eosinophils # (Auto) 0.1 K/mm3 (0.0-0.4); Eosinophils % (Auto) 1.3 % (0.0-4.3); Hematocrit 45.8 % (35.5-45.6); Hemoglobin 15.1 gm/dl (11.8-15.2); Lymphocytes % (Auto) 51.9 % (13.4-35.0); Mean Corpuscular HGB Conc 33 % (32-34); Mean Corpuscular Volume 88 fl (84-94); Monocytes # (Auto) 0.7 K/mm3 (0.0-0.8); Monocytes % (Auto) 8.8 % (0.0-7.3); Platelet Count 241 K/mm3 (140-440); Red Blood Count 5.21 M/mm3 (3.65-5.03); Red Cell Distribution Width 14.7 % (13.2-15.2)
[2021-05-14 06:07] LABS: Alanine Aminotransferase 30 units/L (7-56); Albumin 4.2 g/dL (3.9-5); BUN/Creatinine Ratio 13; Blood Urea Nitrogen 18 mg/dL (9-20); Calcium 9.1 mg/dL (8.4-10.2); Hemolysis Index 11
--- NOTE | 2021-05-14 09:05 | Consultation ---
History of Present Illness Consult date: 05/14/21 Reason for Consult: Left side numbness History of present illness: Left arm numbness History of present illness: 45-year-old male with no significant past medical history except for obesity comes in for left arm numbness which has been going on since 11 AM. The left arm numbness is continuous. No remission. Patient is work and waited for 1 hour thinking that the symptoms would go away on their own. Because of non resolution of the symptoms patient comes to the emergency room. Patient thinks it may be because of Cipro which he is taking for some lymph node infection. From his PCP. No weakness. No slurred speech. No diplopia. No unsteady gait. Strength is normal in all 4 extremities. No syncope. - Past Medical History No - Surgical History Past Surgical History?: No - Social History Smoking Status: Never Smoker Substance Use Type: None - Medications Home Medications: Home Medications Medication Instructions Recorded Confirmed Last Taken Type Famotidine [Pepcid] 20 mg PO BID #30 tablet 01/01/17 Unknown Rx Prednisone [predniSONE 5 mg (6-Day 5 mg PO .TAPER #1 tab.ds.pk 01/01/17 Unknown Rx Pack, 21 Tabs)] cephALEXin [Keflex] 500 mg PO Q12HR #20 cap 01/01/17 Unknown Rx Hyoscyamine Subl [Levsin Sl 0.125 0.125 mg SL Q4HR PRN #20 tablet 05/06/21 Unknown Rx TAB] --Review of Systems ROS: Stated complaint: LT ARM NUMBNESS Other details as noted in HPI Comment: All other systems reviewed and negative Constitutional: denies: chills, fever Eyes: denies: eye pain, vision change ENT: denies: ear pain, throat pain Respiratory: denies: cough, shortness of breath Cardiovascular: denies: chest pain, palpitations Gastrointestinal: denies: abdominal pain, vomiting Genitourinary: denies: dysuria, discharge Musculoskeletal: denies: back pain, arthralgia Skin: denies: rash, lesions Neurological: numbness, paresthesias. denies: headache Medications and Allergies Allergies Allergy/AdvReac Type Severity Reaction Status Date / Time No Known Allergies Allergy Verified 05/13/21 12:59 Home Medications Medication Instructions Recorded Confirmed Last Taken Type No Known Home Medications [No 05/13/21 05/13/21 Unknown History Reported Home Medications] Medications and Allergies Allergies Allergy/AdvReac Type Severity Reaction Status Date / Time No Known Allergies Allergy Verified 05/13/21 12:59 Home Medications Medication Instructions Recorded Confirmed Last Taken Type No Known Home Medications [No 05/13/21 05/13/21 Unknown History Reported Home Medications] Active Meds: Active Medications Acetaminophen (Acetaminophen 325 Mg Tab) 650 mg PO Q4H PRN PRN Reason: Pain MILD(1-3)/Fever >100.5/MCQUEEN Famotidine (Famotidine 20 Mg Tab) 20 mg PO BID [facility] Heparin Sodium (Porcine) (Heparin 5,000 Unit/1 Ml Vial) 5,000 unit SUB-Q Q12HR [facility] Last Admin: 05/13/21 23:33 Dose: 5,000 unit Documented by: Hydromorphone HCl (Hydromorphone 1 Mg/1 Ml Inj) 0.5 mg IV Q3H PRN PRN Reason: Pain , Severe (7-10) Sodium Chloride (Nacl 0.9% 1000 Ml) 1,000 mls @ 100 mls/hr IV DIRECT [facility] Metoclopramide HCl (Metoclopramide 10 Mg/2 Ml Inj) 10 mg IV Q6H PRN PRN Reason: Nausea And Vomiting Ondansetron HCl (Ondansetron 4 Mg/2 Ml Inj) 4 mg IV Q8H PRN PRN Reason: Nausea And Vomiting Oxycodone/Acetaminophen (Oxycodone /Acetaminophen 5-325mg Tab) 1 tab PO Q6H PRN PRN Reason: Pain, Moderate (4-6) Sodium Chloride (Sodium Chloride 0.9% 10 Ml Flush Syringe) 10 ml IV BID [facility] Sodium Chloride (Sodium Chloride 0.9% 10 Ml Flush Syringe) 10 ml IV PRN PRN PRN Reason: LINE FLUSH Physical Examination - Vital Signs Vital Signs: Vital Signs Temp Pulse Resp BP Pulse Ox 98.3 F 85 18 126/81 98 05/13/21 13:02 05/13/21 13:02 05/13/21 13:02 05/13/21 13:02 05/13/21 13:02 - Constitutional General appearance: comfortable - EENT EENT: Present: PERRL, mucous membranes moist - Respiratory Respiratory: Present: chest non-tender, lungs clear, rhonchi - Cardiovascular Cardiovascular: Present: regular rate, normal S1, normal S2 Extremities: Present: no peripheral edema bilatateraly, no clubbing, cyanosis - Gastrointestinal Gastrointestinal: Present: normoactive bowel sounds - Integumentary Integumentary: Present: normal - Neurologic Cranial nerve examination: PERRL, EOMI, ptosis, intact Sensorimotor examination: intact Detailed motor examination: grossly full strength in Results - Laboratory Findings CBC and BMP: 05/14/21 05:11 05/14/21 05:11 Abnormal Lab Findings: Abnormal Labs 05/13/21 05/13/21 05/14/21 15:04 15:04 05:11 RBC 5.18 H 5.21 H Hct 45.8 H Lymph % (Auto) 41.3 H 51.9 H [place] % (Auto) 8.7 H 8.8 H Seg Neutrophils % 37.7 L Creatinine 1.4 H Glucose Total Creatine Kinase 556 H CK-MB (CK-2) 6.3 H 05/14/21 05:11 RBC Hct Lymph % (Auto) [place] % (Auto) Seg Neutrophils % Creatinine 1.4 H Glucose 114 H Total Creatine Kinase CK-MB (CK-2) Assessment and Plan Assessment and Plan # left arm numbness lasted 4 hours yesterday resolved today no associated weakness no facial involvment -Exam is unremarkable -MRI Cervial spine noted C3-4 right spinal stenosis -Brain MRI is unremarkable - Elevated CPK? -exam is suggestive of CTS !!! - TIA can not be excluded-- maitain ASA 81 mg , -check LDL, lipitor 40 mg -CTA brain and neck -Neurology follow up -Echo -LDL-- Lipitor 40 mg # LUIGI (acute kidney injury) -IV fluids # Morbid obesity with body mass index (BMI) of 40.0 to 44.9 in adult -Patient needs follow-up with bariatric surgeon counseled about his weight -Consider sleep study # DVT prophylaxis -On heparin and GI prophylaxis will follow as needded.
--- NOTE | 2021-05-14 09:53 | Progress Note ---
Assessment and Plan Assessment and plan: Left upper ext numbness To r/o TIA vs carpal tunnel syndrome vs radiculopathy Neurology consulted, following MRI brain neg I discussed with Neurology, Dr. Bergman For CTA Head and Neck LUIGI (acute kidney injury) Cr 1.4. This may be acute vs chronic Morbid obesity with body mass index (BMI) of 40.0 to 44.9 in adult Patient needs follow-up with bariatric surgeon counseled about his weight DVT prophylaxis On heparin and GI prophylaxis History Interval history: Left upper ext numbness Hospitalist Physical - Physical exam Narrative exam: Gen: Not in acute distress, lying in bed, morbidly obese HEENT: Normochephalic, atraumatic Neck:supple, No JVD Lungs:Clear to auscultation bilaterally, no rales, no wheeze Heart:S1 and S2 reg, no murmurs, rubs or gallop Abd: soft, non tender, non distended, normal bowel sounds Ext: No edema, no clubbing, no cyanosis Neuro:Awake,alert,oriented X 3, moves all ext, left upper ext numbness - Constitutional Vitals: Temp Pulse Resp BP Pulse Ox 97.3 F L 65 18 130/64 97 05/14/21 07:43 05/14/21 07:43 05/14/21 07:43 05/14/21 07:43 05/14/21 07:43 General appearance: Present: no acute distress, well-nourished HEART Score - HEART Score Age: 45-65 Risk factors: 1-2 risk factors (Obesity) Troponin: Troponin T < 0.010 ng/mL (0.00-0.029) 05/13/21 15:04 Troponin: < normal limit - Critical Actions Critical Actions: 0-3 pts:0.9-1.7%risk of adverse cardiac event.Candidate for discharge Results - Labs CBC & Chem 7: 05/14/21 05:11 05/14/21 05:11 Labs: Laboratory Last Values WBC 7.8 K/mm3 (4.5-11.0) 05/14/21 05:11 RBC 5.21 M/mm3 (3.65-5.03) H 05/14/21 05:11 Hgb 15.1 gm/dl (11.8-15.2) 05/14/21 05:11 Hct 45.8 % (35.5-45.6) H 05/14/21 05:11 MCV 88 fl (84-94) 05/14/21 05:11 MCH 29 pg (28-32) 05/14/21 05:11 MCHC 33 % (32-34) 05/14/21 05:11 RDW 14.7 % (13.2-15.2) 05/14/21 05:11 Plt Count 241 K/mm3 (140-440) 05/14/21 05:11 Lymph % (Auto) 51.9 % (13.4-35.0) H 05/14/21 05:11 [place] % (Auto) 8.8 % (0.0-7.3) H 05/14/21 05:11 Eos % (Auto) 1.3 % (0.0-4.3) 05/14/21 05:11 Baso % (Auto) 0.3 % (0.0-1.8) 05/14/21 05:11 Lymph # (Auto) 4.0 K/mm3 (1.2-5.4) 05/14/21 05:11 [place] # (Auto) 0.7 K/mm3 (0.0-0.8) 05/14/21 05:11 Eos # (Auto) 0.1 K/mm3 (0.0-0.4) 05/14/21 05:11 Baso # (Auto) 0.0 K/mm3 (0.0-0.1) 05/14/21 05:11 Seg Neutrophils % 37.7 % (40.0-70.0) L 05/14/21 05:11 Seg Neutrophils # 2.9 K/mm3 (1.8-7.7) 05/14/21 05:11 PT 13.4 Sec. (12.2-14.9) 05/13/21 15:04 INR 0.97 (0.87-1.13) 05/13/21 15:04 APTT 25.9 Sec. (24.2-36.6) 05/13/21 15:04 Thrombin Time 17.9 Sec. (15.1-19.6) 05/13/21 15:04 Sodium 140 mmol/L (137-145) 05/14/21 05:11 Potassium 4.1 mmol/L (3.6-5.0) 05/14/21 05:11 Chloride 106.1 mmol/L (98-107) 05/14/21 05:11 Carbon Dioxide 24 mmol/L (22-30) 05/14/21 05:11 Anion Gap 14 mmol/L 05/14/21 05:11 BUN 18 mg/dL (9-20) 05/14/21 05:11 Creatinine 1.4 mg/dL (0.8-1.3) H 05/14/21 05:11 Estimated GFR > 60 ml/min 05/14/21 05:11 BUN/Creatinine Ratio 13 % 05/14/21 05:11 Glucose 114 mg/dL (75-100) H 05/14/21 05:11 POC Glucose 94 mg/dL (70-105) 05/13/21 13:06 Calcium 9.1 mg/dL (8.4-10.2) 05/14/21 05:11 Magnesium 2.10 mg/dL (1.7-2.3) 05/13/21 15:04 Total Bilirubin 0.20 mg/dL (0.1-1.2) 05/14/21 05:11 AST 18 units/L (5-40) 05/14/21 05:11 ALT 30 units/L (7-56) 05/14/21 05:11 Alkaline Phosphatase 76 units/L (35-129) 05/14/21 05:11 Total Creatine Kinase 556 units/L (55-170) H 05/13/21 15:04 CK-MB (CK-2) 6.3 ng/mL (0.0-4.0) H 05/13/21 15:04 CK-MB (CK-2) Rel Index 1.1 (0-4) 05/13/21 15:04 Troponin T < 0.010 ng/mL (0.00-0.029) 05/13/21 15:04 Total Protein 6.7 g/dL (6.3-8.2) 05/14/21 05:11 Albumin 4.2 g/dL (3.9-5) 05/14/21 05:11 Albumin/Globulin Ratio 1.7 % 05/14/21 05:11 Plasma/Serum Alcohol < 0.01 % (0-0.07) 05/13/21 15:04 [place]/IV: Voiding Method Toilet Active Medications - Current Medications Current Medications: Generic Name Dose Route Start Last Admin Trade Name Freq PRN Reason Stop Dose Admin Acetaminophen 650 mg 05/13/21 22:01 Acetaminophen 325 Mg Tab PO Q4H PRN Pain MILD(1-3)/Fever >100.5/MCQUEEN Famotidine 20 mg 05/14/21 10:00 Famotidine 20 Mg Tab PO BID [facility] Heparin Sodium (Porcine) 5,000 unit 05/13/21 22:15 05/13/21 23:33 Heparin 5,000 Unit/1 Ml Vial SUB-Q 5,000 unit Q12HR [facility] Administration Hydromorphone HCl 0.5 mg 05/13/21 22:01 Hydromorphone 1 Mg/1 Ml Inj IV Q3H PRN Pain , Severe (7-10) Sodium Chloride 1,000 mls @ 100 mls/hr 05/13/21 22:15 Nacl 0.9% 1000 Ml IV DIRECT [facility] Metoclopramide HCl 10 mg 05/13/21 22:01 Metoclopramide 10 Mg/2 Ml Inj IV Q6H PRN Nausea And Vomiting Ondansetron HCl 4 mg 05/13/21 22:01 Ondansetron 4 Mg/2 Ml Inj IV Q8H PRN Nausea And Vomiting Oxycodone/Acetaminophen 1 tab 05/13/21 22:01 Oxycodone /Acetaminophen 5-325mg Tab PO Q6H PRN Pain, Moderate (4-6) Sodium Chloride 10 ml 05/14/21 10:00 Sodium Chloride 0.9% 10 Ml Flush Syringe IV BID [facility] Sodium Chloride 10 ml 05/13/21 22:01 Sodium Chloride 0.9% 10 Ml Flush Syringe IV PRN PRN LINE FLUSH
--- NOTE | 2021-05-14 09:57 | Magnetic Resonance Report ---
MRI BRAIN WITHOUT CONTRAST INDICATION / CLINICAL INFORMATION: CVA, Lt arm numbness. TECHNIQUE: Multiplanar, multisequence MR images of the brain were obtained. COMPARISON: Head CT on 05/13/2021 FINDINGS: BRAIN / INTRACRANIAL CONTENTS: No acute ischemia, acute hemorrhage, mass effect, midline shift, or hy drocephalus. No chronic infarct or significant atrophy. No significant demyelinating changes. CRANIOCERVICAL JUNCTION: No significant abnormality. VASCULAR FLOW-VOIDS: No significant abnormality. ORBITS: No significant abnormality of visualized orbits. SINUSES / MASTOIDS: No significant abnormality of visualized sinuses and mastoid air cells. ADDITIONAL FINDINGS: None. IMPRESSION: 1. No acute findings. No evidence of acute infarct or hemorrhage. Signer Name: Timothy Sorensen MD Signed: 05/14/2021 9:52 AM Workstation Name: [id number]
[2021-05-14] MEDS ORDERED: FAMOTIDINE 20 MG TAB PO SCH (10:00)
[2021-05-14] MEDS: HEPARIN 5,000 UNIT/1 ML VIAL SUB-Q SCH (10:38)
--- NOTE | 2021-05-14 11:02 | Magnetic Resonance Report ---
MRI CERVICAL SPINE WITHOUT CONTRAST INDICATION / CLINICAL INFORMATION: Left arm numbness. TECHNIQUE: Multisequence, multiplanar images of the cervical spine were obtained. COMPARISON: None available. FINDINGS: POSTOPERATIVE CHANGES: none CRANIOCERVICAL JUNCTION:No significant abnormality. ALIGNMENT: Normal alignment is maintained throughout cervical region. VERTEBRAE:Normal bone marrow signal intensity is maintained throughout. CERVICAL INTERVERTEBRAL DISCS: Disc height and disc signal intensity are fairly well-maintained. VISUALIZED SPINAL CORD: No intrinsic cord lesions are identified. There is no indication of cord comp ression. [id number] ANALYSIS: C2-3: No significant disc abnormality, spinal canal stenosis, or neural foraminal stenosis. C3-4: Small central and right paracentral disc herniation with compression of the ventral surface of the thecal sac. There is no associated cord compression. Central spinal canal and neuroforamina are a dequate at this level. C4-5: No significant disc abnormality, spinal canal stenosis, or neural foraminal stenosis. C5-6: No significant disc abnormality, spinal canal stenosis, or neural foraminal stenosis. C6-7: No significant disc abnormality, spinal canal stenosis, or neural foraminal stenosis. C7-T1: No significant disc abnormality, spinal canal stenosis, or neural foraminal stenosis. PARASPINAL SOFT TISSUES: No significant abnormality. IMPRESSION: 1. Small central and right paracentral disc herniation C3-4. Signer Name: Jorge Walsh MD Signed: 05/14/2021 10:57 AM Workstation Name: [id number]
[2021-05-14 16:46] VITALS: BP 144/63
--- NOTE | 2021-05-14 17:21 | Cat Scan Report ---
CTA HEAD AND NECK WITH CONTRAST HISTORY: CVA, left arm numbness COMPARISON: Brain MRI done earlier today TECHNIQUE: All CT scans at this location are performed using CT dose reduction for ALARA by means of automated exposure control.. 3-D/MIP reformats postprocessed. Percentage stenosis is determined by d irect quantitative measurements of diseased internal carotid artery diameter compared with normal dis josefa internal carotid artery reference segments or by criteria similar to NASCET where applicable. CONTRAST: 100 ml of Omnipaque 350 FINDINGS: CT HEAD: BRAIN / INTRACRANIAL CONTENTS: No acute hemorrhage, mass effect, midline shift, or hydrocephalus. No appreciable acute large territorial or lacunar infarct. ORBITS: No significant abnormality of visualized orbits. SINUSES / MASTOIDS: No significant abnormality of visualized sinuses and mastoid air cells. CTA HEAD: Intracranial vertebral arteries: No significant abnormality. Basilar artery: No significant abnormality. Posterior cerebral arteries: No significant abnormality. Intracranial internal carotid arteries: No significant abnormality. Anterior cerebral arteries: No significant abnormality. Middle cerebral arteries: No significant abnormality. Dural venous sinuses:Not optimally opacified. No significant abnormality. CTA NECK: Aortic arch: No significant abnormality. Cervical vertebral arteries: No significant abnormality. Common carotid arteries: No significant abnormality. Cervical internal carotid arteries: No significant abnormality. Additional findings: None. IMPRESSION: 1. No significant stenosis, large vessel occlusion, or other significant abnormality in the neck or i ntracranial arteries. Signer Name: Timothy Sorensen MD Signed: 05/14/2021 5:16 PM Workstation Name: [id number]
--- NOTE | 2021-05-14 19:41 | Electrocardiograph Report ---
[facility] Test Date: 2021-05-13 Test Time: 16:49:04 Pat Name: ALIDA GRIER Department: Room: A466 1 Gender: M Life Coach: CAROL : 1975 Requested By: EAMON SANDERS Order Number: [id number] Reading MD: Hakeem Pierre Measurements Intervals [place] Rate: 72 P: 58 OK: 136 QRS: 6 QRSD: 94 T: 25 QT: 380 QTc: 416 Interpretive Statements Sinus rhythm No previous ECG available for comparison Electronically Signed On 05-14-2021 19:41:07 EDT by Hakeem Pierre
--- NOTE | 2021-05-15 07:43 | Discharge Summary ---
Providers - Providers Date of Admission: 05/13/21 16:14 Date of discharge: 05/14/21 Attending physician: CARINA KENT 05/13/21 22:01 Consult to Physician [CONS] Routine Comment: Consulting Provider: DRISS MIXON Physician Instructions: Reason For Exam: Left arm numbness Primary care physician: RADIO PROGRAM CHECKER Hospitalization Condition: Fair Hospital course: 45-year-old male with no significant past medical history except for obesity comes in for left arm numbness which has been going on since 11 AM. The left arm numbness is continuous. No remission. Patient was at work and waited for 1 hour thinking that the symptoms would go away on their own. Because of nonresolution of the symptoms patient comes to the emergency room. Patient thinks it may be because of Cipro which he is taking for some lymph node infection. From his PCP. No weakness. No slurred speech. No diplopia. No unsteady gait. Strength is normal in all 4 extremities. No syncope. MRI Brain did not show any acute findings. Patient was to be re-evaluated by neurology but he however signed out against medical advice on 05/14/21. Left upper ext numbness To r/o TIA vs carpal tunnel syndrome vs radiculopathy Neurology consulted, following MRI brain neg I discussed with Neurology, Dr. Bergman LUIGI (acute kidney injury) Cr 1.4. This may be acute vs chronic Morbid obesity with body mass index (BMI) of 40.0 to 44.9 in adult Patient needs follow-up with bariatric surgeon counseled about his weight DVT prophylaxis On heparin and GI prophylaxis Disposition: DC-07 LEFT AGAINST MED ADVICE Final Discharge Diagnosis (Prints w/discharge instructions): 1.Left upper ext numbness poss TIA. 2.LUIGI - Discharge Diagnoses (1) Left upper extremity numbness Status: Acute (2) LUIGI (acute kidney injury) Status: Acute (3) Morbid obesity with body mass index (BMI) of 40.0 to 44.9 in adult Status: Chronic (4) Left against medical advice Status: Acute Core Measure Documentation - Palliative Care Palliative Care/ Comfort Measures: Not Applicable - Core Measures Any of the following diagnoses?: none Exam - Constitutional Vitals: Temp Pulse Resp BP Pulse Ox 98.3 F 84 18 144/63 98 05/14/21 15:41 05/14/21 15:41 05/14/21 15:41 05/14/21 15:41 05/14/21 15:41 Plan Follow up with: PRIMARY CARE, [Primary Care Provider] - 3-5 Days Forms: AMA Form
--- NOTE | 2021-05-15 07:43 | Event Note ---
Date: 05/15/21 Patient left against medical advice yesterday.
== END 2021-05-14 19:29 | disposition left against medical advice (07) ==
LOC: ED 12:54 → 4A 16:14
PROVIDERS: ADMIT Internal Medicine; ATTEND Internal Medicine
DX: M54.12 Radiculopathy, cervical region (principal); N17.9 Acute kidney failure, unspecified; E66.01 Morbid (severe) obesity due to excess calories; Z68.41 Body mass index [BMI] 40.0-44.9, adult
CPT/HCPCS: 36415; 70450; 70496; 70498; 70551; 72141; 80053; 82550; 82553; 82962; 83735; 84484; 85025; 85610; 85670; 85730; 93005; 96361; 96372; 96374; 99285; G0378; J1170; J1644; J7030; Q9967; 80320; G0480